=== PATIENT | male | born 1960 | race Caucasian/White ===

== ENCOUNTER → 2020-03-25 08:26 | Outpatient (CLI) | payer OTHER, SELFPAY ==
[2020-03-25 09:53] LABS: COVID19 -Nasal RAPID Negative (Negative)
== END ==
PROVIDERS: Visit Provider Physician Assistant
DX: Z20.822 Contact with and (suspected) exposure to COVID-19 (principal)
CPT/HCPCS: 87635

== ENCOUNTER 2020-03-27 07:29 | Day surgery (SDC) | payer OTHER, SELFPAY ==
[2020-03-27] VITALS (7 sets, daily range): BP systolic 105–142; BP diastolic 67–88; PULSE 68–84; RESP 13–18; TEMP 36.2–36.9; O2SAT 94–100; BMI 33.9
--- NOTE | 2020-03-27 | PATH_ITS ---
[facility] Accession Number: [id number] . 01 Material submitted: . PART A: gastrointestinal site - GASTRIC BIOPSIES PART B: gastrointestinal site - GASTRIC POLYP PART C: esophagus, E-G Junction - GE JUNCTION . 01 Clinical history: . EGD/SCREENING COLONOSCOPY A. RULE OUT H. PYLORI C. RULE OUT KIM'S . 02 Diagnosis: A. Gastric Biopsies: Portions of gastric antral and body-type mucosa with mild chronic inflammation. Negative for Helicobacter organisms by immunohistochemistry. Negative for intestinal metaplasia. Negative for dysplasia and malignancy. . B. Gastric Polyp: Portions of hyperplastic polyp x2. . C. GE Junction: Squamocolumnar junctional mucosa with specialized intestinal metaplasia, consistent with Kim's esophagus. Negative for dysplasia and malignancy. MRV 04/01/2020 1544 Local . 02 Electronically signed: . Naomi Kirby MD, Pathologist NPI- [id number] . 01 Gross description: . Part A: GASTRIC BIOPSIES: Received in formalin are 4 fragment(s) of gilbert, soft tissue measuring 0.1 x 0.1 x 0.1 cm to 0.4 x 0.2 x 0.2 cm submitted entirely in 1 cassette(s) Part B: GASTRIC POLYP: Received in formalin are 2 fragment(s) of gilbert, soft tissue measuring 0.1 x 0.1 x 0.1 cm to 0.2 x 0.2 x 0.2 cm submitted entirely in 1 cassette(s) Part C: GE JUNCTION: Received in formalin are 4 fragment(s) of gilbert, soft tissue measuring 0.1 x 0.1 x 0.1 cm to 0.3 x 0.2 x 0.2 cm submitted entirely in 1 cassette(s) /AMY 03/28/2020 1842 Local . 02 Microscopic: . A. An immunohistochemical stain was performed to evaluate for Helicobacter organisms and is negative. The control stain showed appropriate reactivity. . * This test was developed and its performance characteristics determined by [facility]. It has not been cleared or approved by the U.S. Food and Drug Administration. The FDA has determined that such clearance or approval is not necessary. This test is used for clinical purposes. It should not be regarded as investigational or for research. . 02 Pathologist provided ICD-10: Z12.11, K21.9, K22.70 . 02 CPT . 898492, 744510, 222215, [id number] Performed at: 01 [facility] [address] [place] [address], [place], [place] [id number] MD Darell Chiu MD Phone: [phone] Performed at: 02 [facility] [address] [place], [place] [id number] MD Opal Torres MD Phone: [phone]
[2020-03-27] MEDS: SODIUM CHLORIDE 0.9% 1,000 ML 70 ML IV (08:06)
--- NOTE | 2020-03-27 08:10 | PM.HP.1 ---
History of Present Illness History of Present Illness Date Patient Seen: 03/27/20 Time Patient Seen: 08:10 Chief complaint: EGD/SCREENING COLONOSCOPY Narrative: It is a very pleasant 60-year-old male presented for EGD and colonoscopy. Does describe having heartburn symptoms for more than 20 years. He has been on a acid reducing medication since at least . He denies dysphagia. He is also due for screening colonoscopy. His last screening colonoscopy was at age 49. He denies history of colon polyps or family history of colon cancer. Denies diarrhea constipation. Patient History Family & Social History Social History: household members friend(s) Tobacco & Substance use: Smoking Status Never smoker alcohol intake current alcohol intake frequency a few times a month Substance Use Type does not use Meds Home Medications and Allergies Home Medications Medication Instructions Recorded Confirmed Type esomeprazole magnesium [Nexium] 20 mg PO DAILY 03/27/20 03/27/20 History hydrochlorothiazide 12.5 mg PO QAM 03/27/20 03/27/20 History levothyroxine [Synthroid] 150 mcg PO DAILY 03/27/20 03/27/20 History lisinopril 20 mg PO DAILY 03/27/20 03/27/20 History simvastatin 20 mg PO BEDTIME 03/27/20 03/27/20 History Allergies Allergy/AdvReac Type Severity Reaction Status Date / Time No Known Drug Allergies Allergy Verified 03/27/20 07:39 Review of Systems Review of Systems ROS: Yes All systems reviewed with the patient and are negative except as otherwise documented Exam Vital Signs (past 8 hours): - 03/27/20 07:48 Temperature 98.5 F Pulse Rate 73 Respiratory Rate 18 Blood Pressure 142/86 H Pulse Oximetry 100 Oxygen Delivery Method Room Air Const General: cooperative, healthy appearing, comfortable, well developed, well groomed and No acute distress [facility] Head: normocephalic and atraumatic Resp Effort & Inspection: normal respiratory effort and able to speak in complete sentences Auscultation: clear to auscultation bilaterally Cardio Rate: regular rate Rhythm: regular rhythm Heart Sounds: S1 normal and S2 normal GI Palpation: soft Auscultation: normal bowel sounds Extrem Right lower extremity: no edema Left lower extremity: no edema Assessment & Plan Assessment & Plan narrative: 1. GERD / Heartburn 2. Screening colonoscopy -EGD and colonoscopy today, further recommendations to follow
[2020-03-27] MEDS: MIDAZOLAM 5 MG/5 ML VIAL IV (08:49)
[2020-03-27] MEDS: fentaNYL 250 MCG/5 ML INJ IV (08:49)
[2020-03-27] MEDS: LIDOCAINE 4% SOLN 50 ML 20 ML TOP (09:03)
--- NOTE | 2020-03-27 09:12 | PM.OP.ENDO ---
Operative Date/Time/Diagnoses Date of procedure: 03/27/20 Time of procedure: 08:38 Procedure Notes Procedure in detail: Surgeon: Mireya Cummings DO Procedure: Esophagogastroduodenoscopy with biopsy and colonoscopy Preoperative diagnosis: 1. Heartburn/gastroesophageal reflux 2. Screening colonoscopy Postoperative diagnosis: 1. LA-a esophagitis -rule out Roberson's, biopsied 2. Medium-sized hiatal hernia 3. Mild gastritis, biopsied to rule out H pylori 4. Multiple gastric polyps in the gastric body, biopsied Medications: Conscious sedation using a total of 4 mg IV of Midazolam and 150 mcg IV of Fentanyl (total for both procedures), 4% lidocaine gargle Preanesthesia Assessment An H and P was performed/updated and the Px?s ASA class is 2. The procedure was discussed in detail with the patient. The potential risks and complications including infection, bleeding, missed lesions, perforation, need for surgery in case of perforation, prolonged hospital stay, and were explained. A brief question and answer period was allotted and once all questions were answered, informed consent was obtained. The patient was brought back to the procedure room and placed on standard monitoring. The patient?s vital signs were monitored continuously throughout the entire procedure. Prior to starting, a timeout was performed to confirm the patient?s identity, allergies, medications, and procedure. Procedure in detail The patient was placed in left lateral decubitus position and a bite block was inserted. The tip of the upper endoscope was placed into the mouth and advanced without difficulty under direct visualization into the esophagus. Esophagus: LA-a esophagitis at the GE junction biopsy to rule out H pylori Stomach: Medium-sized hiatal hernia Multiple gastric polyps in the gastric body, biopsies Mild gastritis with erythema with patchy distribution in the antrum and body, biopsied to rule out H pylori Duodenum: Normal-appearing duodenum After the upper endoscopy, preparations were made for the colonoscopy. Once adequate sedation was obtained a PAYTON was performed. The digital rectal examination did not reveal any palpable lesions. The tip of the colonoscope was placed in the anal canal and advanced without difficulty all the way to the cecum which was identified by the appendiceal orifice and the ileocecal valve. Second pass of the ascending colon was performed. The patient tolerated the procedure well and will be brought back to the recovery area to be discharged once criteria are met. The prep was judged to be good/excellent and adequate to identify polyps less than 5 mm. The withdrawal time was 9min. Large diverticulosis noted in the descending and sigmoid colon. Grade 1-2 internal hemorrhoids were noted on retroflexion. The remainder of the colon mucosa was unremarkable. The total physician intraservice time was 25min. Complications There were no complications and estimated blood loss was minimal. Recommendations Resume high-fiber diet Continue outpatient medications Follow-up pathology results Repeat colonoscopy in 10 years for screening An emergency contact number was given to the patient for any complications related to the procedure
== END 2020-03-27 09:40 | disposition home or self-care (01) ==
PROVIDERS: PCP Student in an Organized Health Care Education/Training Program; Referring Provider Student in an Organized Health Care Education/Training Program; Visit Provider Student in an Organized Health Care Education/Training Program
PROC: 0DJ08ZZ Inspection of Upper Intestinal Tract, Via Natural or Artificial Opening Endoscopic (ICD-10-PCS; CPT 43235; principal; 2020-03-27 08:30)
PROC: 0DJD8ZZ Inspection of Lower Intestinal Tract, Via Natural or Artificial Opening Endoscopic (ICD-10-PCS; CPT 45378; 2020-03-27 08:30)
DX: Z12.11 Encounter for screening for malignant neoplasm of colon (principal); K21.9 Gastro-esophageal reflux disease without esophagitis; K20.90 Esophagitis, unspecified without bleeding; K44.9 Diaphragmatic hernia without obstruction or gangrene; K29.50 Unspecified chronic gastritis without bleeding; K57.30 Diverticulosis of large intestine without perforation or abscess without bleeding; K64.0 First degree hemorrhoids
CPT/HCPCS: 43239; 45378; J2250; J3010

== ENCOUNTER → 2021-03-03 09:04 | Outpatient (CLI) | payer OTHER, SELFPAY ==
[2021-03-03 11:49] LABS: COVID19 -Nasal RAPID Negative (Negative)
== END ==
PROVIDERS: Family Provider Nurse Practitioner Family; PCP Student in an Organized Health Care Education/Training Program; Visit Provider Physician Assistant
DX: Z20.822 Contact with and (suspected) exposure to COVID-19 (principal)
CPT/HCPCS: 87635

== ENCOUNTER 2021-03-04 10:39 | Day surgery (SDC) | payer OTHER, SELFPAY ==
--- NOTE | 2021-03-04 | PATH_ITS ---
[facility] Accession Number: [id number] . 01 Material submitted: . PART A: gastrointestinal site - GASTRIC POLYPS PART B: esophagus - DISTAL ESOPHAGUS . 02 Diagnosis: A. Stomach, Polyps, Biopsies: Fundic gland polyps. No evidence of Helicobacter on H/E stain. Negative for intestinal metaplasia. Negative for dysplasia and malignancy. . B. Distal Esophagus, Biopsy: Squamocolumnar junctional mucosa with specialized intestinal metaplasia, consistent with Roberson's esophagus. Negative for dysplasia and malignancy. MRV 03/11/2021 1314 Local . 02 Electronically signed: . Opal Torres MD, Pathologist NPI- [id number] . 01 Gross description: . A. Specimen A is received in formalin labeled gastric polyps and consists of three gilbert-pink fragments of soft tissue, measuring 1.0 x 0.8 x 0.4 cm in aggregate. The specimen is entirely submitted in cassette A1. B. Specimen B is received in formalin labeled distal esophagus and consists of a 0.2 x 0.2 x 0.2 cm gilbert fragment of soft tissue, which is entirely submitted in cassette B1. ([id number]) /[facility] 03/06/2021 1629 Local . 02 Pathologist provided ICD-10: K22.70 . 02 CPT . 145183, [id number] Performed at: 01 [facility] [address] [id number] MD Darell Chiu MD Phone: [phone] Performed at: 02 [facility] [address] [place], [place] [id number] MD Opal Torres MD Phone: [phone]
[2021-03-04 10:50] VITALS: BP 129/76; PULSE 79; RESP 16; TEMP 36.4; O2SAT 99; BMI 28.5
[2021-03-04] MEDS: SODIUM CHLORIDE 0.9% 1,000 ML 84 ML IV (11:00)
--- NOTE | 2021-03-04 11:34 | PM.HP.1 ---
History of Present Illness History of Present Illness Date Patient Seen: 03/04/21 Time Patient Seen: 11:34 Chief complaint: EGD W/POSS BX Narrative: History of new Roberson's diagnosis. Hyperplastic gastric polyps. Patient History Family & Social History Social History: household members spouse,friend(s) Tobacco & Substance use: Smoking Status Never smoker alcohol intake current alcohol intake frequency a few times a month Substance Use Type does not use Meds Home Medications and Allergies Home Medications Medication Instructions Recorded Confirmed Type esomeprazole magnesium 20 mg 20 mg PO DAILY 03/27/20 03/04/21 History capsule,delayed release (Nexium) hydrochlorothiazide 12.5 mg capsule 12.5 mg PO QAM 03/27/20 03/04/21 History levothyroxine 150 mcg tablet 150 mcg PO DAILY 03/27/20 03/04/21 History (Synthroid) lisinopril 20 mg tablet 20 mg PO DAILY 03/27/20 03/04/21 History simvastatin 20 mg tablet 20 mg PO BEDTIME 03/27/20 03/04/21 History Allergies Allergy/AdvReac Type Severity Reaction Status Date / Time No Known Drug Allergies Allergy Verified 03/27/20 07:39 Review of Systems Review of Systems ROS: Yes All systems reviewed with the patient and are negative except as otherwise documented Exam Vital Signs (past 8 hours): - 03/04/21 10:50 Temperature 97.5 F L Pulse Rate 79 Respiratory Rate 16 Blood Pressure 129/76 Pulse Oximetry 99 Oxygen Delivery Method Room Air Const General: cooperative and comfortable Orientation: alert HENMT Head: normocephalic Ears: external ears normal Nose: external nose normal Face and sinus: normal facial exam Mouth: oral mucosae normal Eyes General: appearance normal, both eyes and all related structures Neck Neck: normal visual inspection Chest Chest: normal inspection of the chest Resp Effort & Inspection: normal respiratory effort Cardio Rate: regular rate GI Inspection: normal to inspection Skin General: no rashes or lesions noted and No jaundice Neuro General: patient alert and moves all extremities Cognition: normal cognition Speech: speech normal Extrem General: no pedal edema Psych Appearance: grossly normal Assessment & Plan Assessment & Plan narrative: Roberson's esophagus hyperplastic gastric polyps. Surveillance EGD is pursued today. Time Spent With Patient Critical Care time: I spent a total of [] minutes of critical care time on this patient's care today; this time is exclusive of procedural time.
--- NOTE | 2021-03-04 11:36 | PM.PREOP ---
Pre-operative Note COVID-19 COVID-19 status: Negative Result date/Date tested (Pos, Neg/Pending): 03/03/21 Interval Note History & Physical reviewed/Exam performed by Physician: Yes Changes to H&P: No ASA Class (for procedural sedation): II
--- NOTE | 2021-03-04 12:04 | PM.OP.EGD ---
Operative Date/Time/Diagnoses Date of procedure: 03/04/21 Time of procedure: 12:05 Pre-op diagnosis: Hyperplastic gastric polyps and Roberson's Post-op diagnosis: same Procedure & Clinicians Study performed: EGD with biopsy, cold snare polypectomy, hot snare polypectomy Same procedure as scheduled: Yes Indications: Gastric polyps and Roberson's Surgeon: Miles Gilliam Procedure Notes SCOAP/Timeout: Done Procedure in detail: After the risks and benefits were explained, written and verbal informed consent was obtained. The patient was brought into the procedure room and placed into the left lateral decubitus position. Please see nurse etcher apprentice photoengraving note for sedation details. The scope was introduced into the mouth through the bite block and advanced under direct visualization to the 2nd portion of the duodenum. The scope was slowly withdrawn carefully examining the mucosa for any defects or lesions. Retroflexed views were accomplished in the stomach. The stomach was decompressed, the scope was then removed from the patient who tolerated the procedure well. Sedation minutes: 16 Complications: none Impression: 1. Duodenum: This was normal from the bulb through the 2nd portion. 2. Stomach: No outlet obstruction no ulcers no mass lesions. There were several benign small polyps in the gastric body. It was difficult to get continuous visualization is the patient failed to retain gastric insufflation. The largest polyp that we saw was perhaps about 1 cm in greatest dimension. I elected to take this 1 and 1 smaller polyp for risk control field representative sampling. No additional pathology was appreciated. 3. Esophagus: The squamocolumnar junction was slightly me entering at the level of GEJ. No acute erosive changes no strictures no mass lesions no nodularity. In the 5 o'clock position the salmon-colored mucosa did appear to extend up into the tubular esophagus ever so slightly. This area was targeted for repeat biopsy. Endoscopic diagnosis 1. Gastric polyps 2. Subtle sliding hiatal hernia (not mentioned above) 3. C 0 M 0.5 Roberson's Post-procedure Plan for aftercare: 1. Await histopathology 2. Repeat EGD for surveillance in 3 years. Disposition: PACU
[2021-03-04 12:09] VITALS: BP 108/71; PULSE 74; RESP 14; TEMP 36.4; O2SAT 97
[2021-03-04 12:13] VITALS: BP 109/71; PULSE 78; RESP 16; O2SAT 99
[2021-03-04 12:18] VITALS: BP 112/77; PULSE 75; RESP 8; O2SAT 100
[2021-03-04 12:23] VITALS: BP 112/74; PULSE 72; RESP 13; O2SAT 100
[2021-03-04 12:29] VITALS: BP 118/74; PULSE 69; RESP 12; TEMP 36.6; O2SAT 100
--- NOTE | 2021-03-04 12:47 | SUR.PHASEII ---
pt discharged home with Noemi after getting up out of bed and dressing self. Very occasional non-productive cough. No SOB.
== END 2021-03-04 12:40 | disposition home or self-care (01) ==
LOC: ENDO 10:40
PROVIDERS: Family Provider Nurse Practitioner Family; PCP Student in an Organized Health Care Education/Training Program; Referring Provider Internal Medicine Gastroenterology; Visit Provider Internal Medicine Gastroenterology
PROC: 0DJ08ZZ Inspection of Upper Intestinal Tract, Via Natural or Artificial Opening Endoscopic (ICD-10-PCS; CPT 43235; principal; 2021-03-04 11:00)
DX: K31.7 Polyp of stomach and duodenum (principal); K22.70 Barrett's esophagus without dysplasia; K44.9 Diaphragmatic hernia without obstruction or gangrene
CPT/HCPCS: 43251; J2704